=== PATIENT | male | born 1975 | race African-American/Black ===

== ENCOUNTER → 2025-03-14 09:05 | Outpatient (REF) | payer OTHER, SELFPAY | LOC: RAD 09:05 | PROVIDERS: ATTENDING PHYSICIAN Family Medicine | DX: Z87.442 Personal history of urinary calculi (principal); R10.9 Unspecified abdominal pain | CPT/HCPCS: 74176 ==

== ENCOUNTER → 2025-05-13 15:04 | Outpatient (REF) | payer OTHER, SELFPAY | LOC: RAD 15:04 | PROVIDERS: ATTENDING PHYSICIAN Family Medicine | DX: N28.1 Cyst of kidney, acquired (principal) | CPT/HCPCS: 76770 ==